=== PATIENT | female | born 1965 | race Two or more races ===

== ENCOUNTER 2021-02-14 12:19 | Inpatient (IN) | payer OTHER, MEDICAID ==
[2021-02-14] VITALS (16 sets, daily range): BP systolic 77–123; BP diastolic 45–84
[~2021-02-14] VITALS: Ht 160 cm; Wt 112.9 kg
[2021-02-14] MEDS ORDERED: SODIUM CHLORIDE 0.9% 1,000 ML IV ONE ×3 (13:30→17:00)
[2021-02-14] MEDS ORDERED: SODIUM CHLORIDE 0.9% 1,000 ML IVB ONE (13:30)
[2021-02-14] MEDS ORDERED: HALOPERIDOL 5 MG TAB PO ONE (14:00)
[2021-02-14 14:05] LABS: Basophils # (auto) 0.1 10 ^3/uL (0-0.2); Basophils % (auto) 0.4 % (0.0-2.0); Eosinophils # (auto) 0 10 ^3/uL (0-0.8); Eosinophils % (auto) 0.2 % (0.0-7.0); Hematocrit 40.3 % (36.0-46.0); Hemoglobin 13.4 g/dL (12.2-16.2); Lymphocytes # (auto) 2.2 10 ^3/uL (0.4-5.4); Lymphocytes % (auto) 11.4 % (10.0-50.0); Mean Corpuscular Hemoglobin 30.5 pg (28.0-32.0); Mean Corpuscular Hgb Conc. 33.3 g/dL (32.0-36.0); Mean Corpuscular Volume 91.7 fL (80.0-100.0); Monocytes # (auto) 2.2 10 ^3/uL (0-1.3); Monocytes % (auto) 11.1 % (0.0-12.0); Neutrophils # (auto) 14.9 10 ^3/uL (1.6-8.6); Neutrophils % (auto) 76.9 % (37.0-80.0); Nucleated Red Blood Cells % 0.2 %; Red Cell Distribution Width 12.6 % (11.8-14.3); White Blood Cell 19.4 10^3/uL (4.4-10.8)
[2021-02-14 14:22] LABS: Albumin 3.8 g/dL (3.4-5.0); Calcium 8.1 mg/dL (8.5-10.1); Magnesium 3.5 mg/dL (1.6-2.6); Potassium 4.5 mmol/L (3.5-5.1)
[2021-02-14 14:42] LABS: BUN/Creatinine Ratio 8.6; Bilirubin, Total 0.4 mg/dL (0.2-1.0); Total Protein 8.6 g/dL (6.4-8.2)
[2021-02-14] MEDS ORDERED: LORazepam 2MG/ML-1ML VIAL IV ONE (15:00)
[2021-02-14] MEDS ORDERED: diphenhdrAMINE HCL 50 MG/1 ML VL IM ONE (15:00)
[2021-02-14] MEDS ORDERED: LORazepam 2MG/ML-1ML VIAL IM ONE (15:00)
[2021-02-14] MEDS ORDERED: ACETAMINOPHEN 325 MG TAB PO ONE (15:45)
[2021-02-14 16:32] LABS: Lactic Acid w/Reflex 6.4 mmol/L (0.4-2.0)
[2021-02-14] MEDS ORDERED: HEPARIN SODIUM (PORCINE) 5000 UNITS/ML 1ML VIAL IV ONE (17:00)
[2021-02-14] MEDS ORDERED: ENOXAPARIN SOD 120 MG/0.8 ML SYRINGE SC ONE (17:00)
[2021-02-14] MEDS ORDERED: NITROGLYCERIN 0.4 MG SL TAB SL PRN (17:00)
[2021-02-14] MEDS ORDERED: ACETYLCYSTEINE ORAL for CIN 20%(200MG/ML) 4ML PO SCH (17:00)
[2021-02-14] MEDS ORDERED: ASPirin 81 mg TAB PO ONE (17:00)
[2021-02-14] MEDS ORDERED: MORPHINE SULF INJ 2 MG/ML SYRINGE 1ML IV PRN (17:00)
[2021-02-14] MEDS ORDERED: NOREPINEPHRINE 8 MG/250ML KIT 250 ML IV ONE (17:18)
[2021-02-14] MEDS: NOREPINEPHRINE 8 MG/250ML KIT 250 ML IV SCH (17:21)
[2021-02-14] MEDS ORDERED: ACETYLCYSTEINE ORAL for CIN 20%(200MG/ML) 4ML PO ONE (17:30)
[2021-02-14] MEDS ORDERED: HEPARIN IN NS 1000Units/500mL 1,500 ML ONE (17:46)
[2021-02-14] MEDS ORDERED: IOHEXOL 350 MG/ML 100ML IJ ONE (17:46)
[2021-02-14] MEDS ORDERED: LIDOCAINE 2%HCL (LOCAL ANESTH.) INJ 20ML MDV ONE (17:46)
[2021-02-14] MEDS ORDERED: diphenhdrAMINE HCL 50 MG/1 ML VL ONE (18:16)
[2021-02-14] MEDS ORDERED: IODIXANOL 320MG/ML 100ML BTL IV ONE (18:18)
[2021-02-14] MEDS: levoFLOXacin 250MG 50 ML IV SCH (21:00)
[2021-02-14] MEDS ORDERED: CHOL20009 PO (21:14)
[2021-02-14] MEDS ORDERED: HAL5T PO (21:14)
[2021-02-14] MEDS ORDERED: TRAZ100T3 PO (21:14)
[2021-02-14] MEDS ORDERED: LAMO200T34 PO (21:14)
[2021-02-14] MEDS ORDERED: AML5T GT (21:14)
[2021-02-14] MEDS ORDERED: HALOPERIDOL LACTATE 5 MG/ML INJ VIAL IM ONE (21:15)
[2021-02-14 23:02] LABS: INR 1.19 (0.9-1.15)
[2021-02-15] VITALS (93 sets, daily range): BP systolic 48–188; BP diastolic 21–89
[2021-02-15] MEDS: NOREPINEPHRINE 8 MG/250ML KIT 250 ML IV SCH (01:30)
[2021-02-15 09:47] LABS: Basophils # (auto) 0.1 10 ^3/uL (0-0.2); Basophils % (auto) 0.3 % (0.0-2.0); Eosinophils # (auto) 0.1 10 ^3/uL (0-0.8); Eosinophils % (auto) 0.3 % (0.0-7.0); Hematocrit 41.3 % (36.0-46.0); Hemoglobin 13.7 g/dL (12.2-16.2); Lymphocytes # (auto) 1.7 10 ^3/uL (0.4-5.4); Lymphocytes % (auto) 8.1 % (10.0-50.0); Mean Corpuscular Hemoglobin 30.8 pg (28.0-32.0); Mean Corpuscular Hgb Conc. 33.1 g/dL (32.0-36.0); Mean Corpuscular Volume 92.9 fL (80.0-100.0); Monocytes # (auto) 0.9 10 ^3/uL (0-1.3); Monocytes % (auto) 4.4 % (0.0-12.0); Neutrophils # (auto) 18.4 10 ^3/uL (1.6-8.6); Neutrophils % (auto) 86.9 % (37.0-80.0); Nucleated Red Blood Cells % 0.4 %; Red Blood Cells 4.45 10^6/uL (4.0-5.20); White Blood Cell 21.1 10^3/uL (4.4-10.8)
[2021-02-15] MEDS: levoFLOXacin 250MG 50 ML IV SCH (10:00)
[2021-02-15 10:02] LABS: INR 1.26 (0.9-1.15); Partial Thromboplastin Time 22.7 sec (23.0-31.2)
[2021-02-15 10:08] LABS: Albumin 3.3 g/dL (3.4-5.0)
[2021-02-15 10:28] LABS: BUN/Creatinine Ratio 9.7; Bilirubin, Total 0.7 mg/dL (0.2-1.0); Total Protein 7.3 g/dL (6.4-8.2)
[2021-02-15] MEDS ORDERED: SODIUM CHLORIDE 0.9% 1,000 ML IV SCH (10:30)
[2021-02-15] MEDS ORDERED: ROCURONIUM 10MG/ML 10ML VIAL IV ONE (11:00)
[2021-02-15] MEDS: PROPOFOL 100 ML IV SCH (11:00)
[2021-02-15] MEDS: VASOPRESSIN 50 UNITS in D5W 5% 247.5 ML IV SCH (11:00)
[2021-02-15] MEDS: fentaNYL Drip 2500mCg/250mlNS 250 ML IV SCH (11:00)
[2021-02-15] MEDS ORDERED: ETOMIDATE (2MG/ML) 20ML VIAL IV ONE (11:00)
[2021-02-15] MEDS ORDERED: SUCCINYLCHOLINE CHLORIDE 20 MG/ML 10ML VIAL IV ONE (11:01)
[2021-02-15] MEDS ORDERED: PHENYLEPHRINE IV 250 ML IV ONE (11:02)
[2021-02-15] MEDS ORDERED: MIDAZOLAM DRIP 50 mg/50mL 50 ML IV ONE (11:14)
[2021-02-15 11:24] LABS: Calcium 5.7 mg/dL (8.5-10.1); Potassium 6.9 mmol/L (3.5-5.1)
[2021-02-15] MEDS ORDERED: SODIUM BICARBONATE 8.4% INJ 50ML SYRINGE ONE (11:25)
[2021-02-15] MEDS ORDERED: SODIUM BICARBONATE 8.4 % INJ 50ML VIAL IV ONE (11:30)
[2021-02-15] MEDS ORDERED: DEXTROSE 50% SYRINGE 50 ML IV ONE (11:31)
[2021-02-15] MEDS ORDERED: ALBUTEROL SULF 2.5 MG/0.5ML(0.5%) NEB SOLN NEB ONE (12:00)
[2021-02-15] MEDS ORDERED: SODIUM ZIRCONIUM CYCL 10 GM PAK PO ONE (12:00)
[2021-02-15] MEDS: MIDAZOLAM DRIP 50 mg/50mL 50 ML IV SCH (12:00)
[2021-02-15] MEDS ORDERED: CALCIUM GLUC 1,000mg/50ml-NS 50 ML IV ONE ×3 (12:00→23:00)
[2021-02-15 12:10] LABS: Cholesterol 190 mg/dL (< 200); Triglycerides 189 mg/dL (< 150)
[2021-02-15 12:12] LABS: HDL Cholesterol 53 mg/dL (40-59); LDL Cholesterol 111 mg/dL (< 100)
[2021-02-15] MEDS: SODIUM BICARBONATE 50ML VIAL 150 ML in D5W 5% 1,000 ML IV SCH ×2 (13:23→23:30)
[2021-02-15] MEDS: PIPERACILLIN-TAZOB 2.25GM 50 ML IV SCH ×2 (14:24→21:56)
[2021-02-15 15:32] LABS: BUN/Creatinine Ratio 9.7; Calcium 6.6 mg/dL (8.5-10.1)
[2021-02-15 15:39] LABS: Potassium 6.1 mmol/L (3.5-5.1)
[2021-02-15] MEDS ORDERED: SODIUM BICARBONATE 8.4% INJ 50ML SYRINGE IV ONE (15:45)
[2021-02-15] MEDS ORDERED: ENOXAPARIN SOD 100 MG/1 ML SYRINGE SC SCH (17:00)
[2021-02-15 19:27] LABS: Urine Amorphous Crystal FEW /hpf (None Seen); Urine Bacteria FEW /hpf (None Seen); Urine Blood 3+ /uL (Negative); Urine Budding Yeast MODERATE /hpf (None Seen); Urine Mucus FEW (None Seen); Urine WBC 5 /hpf (0 - 5)
[2021-02-15] MEDS: SODIUM ZIRCONIUM CYCL 10 GM PAK PO SCH (20:00)
[2021-02-15 21:51] LABS: BUN/Creatinine Ratio 9.4; Potassium 5.5 mmol/L (3.5-5.1)
[2021-02-15 21:54] LABS: Lactic Acid w/Reflex 3.5 mmol/L (0.4-2.0)
[2021-02-15 21:55] LABS: Calcium 5.8 mg/dL (8.5-10.1)
[2021-02-15] MEDS ORDERED: InsuLIN REG 1unit/0.01ml Soln (100units/ml) IV ONE (23:00)
[2021-02-15] MEDS ORDERED: DEXTROSE (50%) 50ML SYRG IV ONE (23:00)
[2021-02-16] VITALS (91 sets, daily range): BP systolic 98–141; BP diastolic 53–74
[2021-02-16] MEDS: NOREPINEPHRINE 8 MG/250ML KIT 250 ML IV SCH ×2 (02:00→23:59)
[2021-02-16 05:32] LABS: Basophils # (auto) 0.1 10 ^3/uL (0-0.2); Basophils % (auto) 0.4 % (0.0-2.0); Eosinophils # (auto) 0 10 ^3/uL (0-0.8); Eosinophils % (auto) 0.1 % (0.0-7.0); Hematocrit 36.6 % (36.0-46.0); Hemoglobin 12.6 g/dL (12.2-16.2); Lymphocytes # (auto) 1.5 10 ^3/uL (0.4-5.4); Lymphocytes % (auto) 10.1 % (10.0-50.0); Mean Corpuscular Hemoglobin 31.4 pg (28.0-32.0); Mean Corpuscular Hgb Conc. 34.5 g/dL (32.0-36.0); Mean Corpuscular Volume 90.9 fL (80.0-100.0); Monocytes # (auto) 0.5 10 ^3/uL (0-1.3); Monocytes % (auto) 3.2 % (0.0-12.0); Neutrophils # (auto) 12.8 10 ^3/uL (1.6-8.6); Neutrophils % (auto) 86.2 % (37.0-80.0); Nucleated Red Blood Cells % 0.4 %; Red Blood Cells 4.03 10^6/uL (4.0-5.20); Red Cell Distribution Width 12.7 % (11.8-14.3); White Blood Cell 14.9 10^3/uL (4.4-10.8)
[2021-02-16 05:42] LABS: Albumin 2.6 g/dL (3.4-5.0); Potassium 4.4 mmol/L (3.5-5.1)
[2021-02-16 05:53] LABS: Bilirubin, Total 1.5 mg/dL (0.2-1.0)
[2021-02-16] MEDS: PIPERACILLIN-TAZOB 2.25GM 50 ML IV SCH ×3 (06:00→21:57)
[2021-02-16 06:17] LABS: BUN/Creatinine Ratio 8.6
[2021-02-16] MEDS: SODIUM ZIRCONIUM CYCL 10 GM PAK PO SCH ×2 (06:50→12:00)
[2021-02-16] MEDS: MIDAZOLAM DRIP 50 mg/50mL 50 ML IV SCH (07:08)
[2021-02-16] MEDS ORDERED: SODIUM CHL 0.9% 1000 ML BAG XX ONE (10:30)
[2021-02-16] MEDS: fentaNYL Drip 2500mCg/250mlNS 250 ML IV SCH ×2 (11:00→17:00)
[2021-02-16] MEDS: VASOPRESSIN 50 UNITS in D5W 5% 247.5 ML IV SCH (11:00)
[2021-02-16] MEDS: PROPOFOL 100 ML IV SCH (11:00)
[2021-02-16] MEDS: SODIUM BICARBONATE 50ML VIAL 150 ML in D5W 5% 1,000 ML IV SCH ×2 (14:22→17:00)
[2021-02-16] MEDS ORDERED: BUMETANIDE 2.5mg/10ml (0.25 mg/ml) INJ IV ONE (17:00)
[2021-02-16] MEDS: lamoTRIgine 100 MG TAB PO SCH (22:35)
[2021-02-17] VITALS (105 sets, daily range): BP systolic 90–133; BP diastolic 47–81
[2021-02-17] MEDS: MIDAZOLAM DRIP 50 mg/50mL 50 ML IV SCH (05:24)
[2021-02-17] MEDS: PIPERACILLIN-TAZOB 2.25GM 50 ML IV SCH ×3 (05:34→23:10)
[2021-02-17 06:03] LABS: Albumin 2.1 g/dL (3.4-5.0)
[2021-02-17 06:22] LABS: BUN/Creatinine Ratio 8.2; Total Protein 5.8 g/dL (6.4-8.2)
[2021-02-17] MEDS ORDERED: ALBUTEROL SULF 2.5 MG/0.5ML(0.5%) NEB SOLN NEB ONE (07:00)
[2021-02-17] MEDS ORDERED: SODIUM BICARBONATE 8.4% INJ 50ML SYRINGE IV ONE (07:00)
[2021-02-17] MEDS ORDERED: InsuLIN REG 1unit/0.01ml Soln (100units/ml) IV ONE (07:00)
[2021-02-17] MEDS ORDERED: DEXTROSE (50%) 50ML SYRG IV ONE (07:00)
[2021-02-17] MEDS ORDERED: CALCIUM GLUC 1,000mg/50ml-NS 50 ML IV ONE ×2 (07:00→08:30)
[2021-02-17] MEDS ORDERED: DEXTROSE 50% SYRINGE 50 ML IV ONE (07:15)
[2021-02-17] MEDS ORDERED: SODIUM ZIRCONIUM CYCL 10 GM PAK PO ONE (08:30)
[2021-02-17] MEDS ORDERED: BUMETANIDE 2.5mg/10ml (0.25 mg/ml) INJ IV ONE (08:30)
[2021-02-17] MEDS ORDERED: ENOXAPARIN SOD 30 MG/0.3 ML SYRINGE SC SCH ×2 (10:00)
[2021-02-17] MEDS: lamoTRIgine 100 MG TAB PO SCH ×2 (10:41→23:10)
[2021-02-17] MEDS: PROPOFOL 100 ML IV SCH (11:00)
[2021-02-17] MEDS: VASOPRESSIN 50 UNITS in D5W 5% 247.5 ML IV SCH (11:00)
[2021-02-17] MEDS ORDERED: HEPARIN SODIUM (PORCINE) 5000 UNITS/ML 1ML VIAL IV ONE (13:45)
[2021-02-17] MEDS: HEPARIN DRIP/D5W 100UNITS/ML 250 ML IV SCH (14:50)
[2021-02-17] MEDS: SODIUM ZIRCONIUM CYCL 10 GM PAK PO SCH ×2 (14:52→23:14)
[2021-02-17 15:29] LABS: INR 1.29 (0.9-1.15); Partial Thromboplastin Time 35.6 sec (23.0-31.2)
[2021-02-17] MEDS: SODIUM BICARBONATE 50ML VIAL 150 ML in D5W 5% 1,000 ML IV SCH (16:00)
[2021-02-17 16:15] LABS: Hematocrit 33.1 % (36.0-46.0); Mean Corpuscular Hemoglobin 30.3 pg (28.0-32.0); Mean Corpuscular Hgb Conc. 33.4 g/dL (32.0-36.0); Mean Corpuscular Volume 90.6 fL (80.0-100.0); Red Blood Cells 3.65 10^6/uL (4.0-5.20); Red Cell Distribution Width 12.8 % (11.8-14.3); White Blood Cell 14.4 10^3/uL (4.4-10.8)
[2021-02-17 16:29] LABS: Basophils % (manual) 0 (0.0-2.0); Blast Cells 0; Metamyelocytes % 0; Myelocytes % 0; Promyelocytes % 0; Reactive Lymphocytes 0
[2021-02-17 18:04] LABS: Band Neutrophils % (manual) 5; Eosinophils % (manual) 1 (0-7); Lymphocytes % (manual) 10 (10.0-50.0); Monocytes % (manual) 3 (0-12)
[2021-02-17] MEDS: BUMETANIDE 2.5mg/10ml (0.25 mg/ml) INJ IV SCH (18:30)
[2021-02-18] VITALS (103 sets, daily range): BP systolic 103–144; BP diastolic 59–78
[2021-02-18] MEDS: HEPARIN DRIP/D5W 100UNITS/ML 250 ML IV SCH ×3 (04:03→16:45)
[2021-02-18] MEDS: BUMETANIDE 2.5mg/10ml (0.25 mg/ml) INJ IV SCH ×2 (05:56→18:10)
[2021-02-18] MEDS: PIPERACILLIN-TAZOB 2.25GM 50 ML IV SCH ×3 (05:57→22:04)
[2021-02-18] MEDS: SODIUM ZIRCONIUM CYCL 10 GM PAK PO SCH ×3 (05:57→22:05)
[2021-02-18 06:32] LABS: Basophils # (auto) 0 10 ^3/uL (0-0.2); Basophils % (auto) 0.3 % (0.0-2.0); Eosinophils # (auto) 0 10 ^3/uL (0-0.8); Eosinophils % (auto) 0.2 % (0.0-7.0); Hematocrit 27.7 % (36.0-46.0); Hemoglobin 9.5 g/dL (12.2-16.2); Lymphocytes # (auto) 0.6 10 ^3/uL (0.4-5.4); Lymphocytes % (auto) 4.5 % (10.0-50.0); Mean Corpuscular Hemoglobin 30.8 pg (28.0-32.0); Mean Corpuscular Hgb Conc. 34.3 g/dL (32.0-36.0); Mean Corpuscular Volume 89.7 fL (80.0-100.0); Monocytes # (auto) 0.6 10 ^3/uL (0-1.3); Monocytes % (auto) 4.4 % (0.0-12.0); Neutrophils # (auto) 11.9 10 ^3/uL (1.6-8.6); Neutrophils % (auto) 90.6 % (37.0-80.0); Nucleated Red Blood Cells % 0.1 %; Red Blood Cells 3.09 10^6/uL (4.0-5.20); Red Cell Distribution Width 12.6 % (11.8-14.3); White Blood Cell 13.1 10^3/uL (4.4-10.8)
[2021-02-18 06:54] LABS: Chloride 84 mmol/L (98-107); Sodium 129 mmol/L (136-145)
[2021-02-18 07:16] LABS: Alanine Aminotransferase 1749 U/L (13-56); Alkaline Phosphatase 194 U/L (45-117); Anion Gap 13 (5-15); Aspartate Aminotransferase 3093 U/L (15-37); BUN/Creatinine Ratio 7.8; Bilirubin, Total 2.1 mg/dL (0.2-1.0); Blood Urea Nitrogen 72 mg/dL (7-18); Carbon Dioxide 32 mmol/L (21-32); GFR African American 6 mL/min; GFR Non-African American 5 mL/min; Glucose 114 mg/dL (74-106); Total Protein 5.9 g/dL (6.4-8.2)
[2021-02-18 07:20] LABS: Calcium < 5.0 mg/dL (8.5-10.1); Potassium 6.6 mmol/L (3.5-5.1)
[2021-02-18 07:26] LABS: INR 1.34 (0.9-1.15)
[2021-02-18 07:29] LABS: Partial Thromboplastin Time 121.9 sec (23.0-31.2)
[2021-02-18] MEDS ORDERED: ALBUTEROL SULF 2.5 MG/0.5ML(0.5%) NEB SOLN ONE (08:55)
[2021-02-18] MEDS ORDERED: SODIUM CHLORIDE 0.9 % NEB SOLN 3ML NEB ONE (08:55)
[2021-02-18] MEDS ORDERED: ALBUTEROL SULF 2.5 MG/0.5ML(0.5%) NEB SOLN NEB ONE (09:00)
[2021-02-18] MEDS ORDERED: CALCIUM GLUC 1,000mg/50ml-NS 50 ML IV ONE ×2 (09:00→10:00)
[2021-02-18] MEDS: lamoTRIgine 100 MG TAB PO SCH ×2 (09:53→22:05)
[2021-02-18] MEDS: VASOPRESSIN 50 UNITS in D5W 5% 247.5 ML IV SCH (11:00)
[2021-02-18] MEDS: MIDAZOLAM DRIP 50 mg/50mL 50 ML IV SCH (11:00)
[2021-02-18] MEDS: PROPOFOL 100 ML IV SCH (11:00)
[2021-02-18] MEDS: fentaNYL Drip 2500mCg/250mlNS 250 ML IV SCH (11:00)
[2021-02-18 15:41] LABS: INR 1.31 (0.9-1.15)
[2021-02-18 15:43] LABS: Partial Thromboplastin Time > 139.0 sec (23.0-31.2)
[2021-02-18] MEDS: NOREPINEPHRINE 8 MG/250ML KIT 250 ML IV SCH (17:30)
[2021-02-18 23:22] LABS: INR 1.26 (0.9-1.15)
[2021-02-19] VITALS (104 sets, daily range): BP systolic 112–151; BP diastolic 61–87
[2021-02-19 04:35] LABS: Basophils # (auto) 0 10 ^3/uL (0-0.2); Basophils % (auto) 0.3 % (0.0-2.0); Eosinophils # (auto) 0.1 10 ^3/uL (0-0.8); Eosinophils % (auto) 0.5 % (0.0-7.0); Hematocrit 26.6 % (36.0-46.0); Hemoglobin 9.4 g/dL (12.2-16.2); Lymphocytes # (auto) 0.7 10 ^3/uL (0.4-5.4); Lymphocytes % (auto) 6.4 % (10.0-50.0); Mean Corpuscular Hemoglobin 31.2 pg (28.0-32.0); Mean Corpuscular Hgb Conc. 35.4 g/dL (32.0-36.0); Mean Corpuscular Volume 88.1 fL (80.0-100.0); Monocytes # (auto) 0.7 10 ^3/uL (0-1.3); Monocytes % (auto) 6.4 % (0.0-12.0); Neutrophils # (auto) 9.3 10 ^3/uL (1.6-8.6); Neutrophils % (auto) 86.4 % (37.0-80.0); Nucleated Red Blood Cells % 0.1 %; Red Blood Cells 3.02 10^6/uL (4.0-5.20); Red Cell Distribution Width 12.6 % (11.8-14.3); White Blood Cell 10.8 10^3/uL (4.4-10.8)
[2021-02-19 05:10] LABS: INR 1.22 (0.9-1.15); Partial Thromboplastin Time 57.5 sec (23.0-31.2)
[2021-02-19 05:19] LABS: Albumin 1.9 g/dL (3.4-5.0); BUN/Creatinine Ratio 7.5; Bilirubin, Total 1.9 mg/dL (0.2-1.0); Magnesium 2.4 mg/dL (1.6-2.6); Total Protein 6.2 g/dL (6.4-8.2)
[2021-02-19 05:46] LABS: Calcium 5.3 mg/dL (8.5-10.1)
[2021-02-19] MEDS: BUMETANIDE 2.5mg/10ml (0.25 mg/ml) INJ IV SCH ×2 (06:05→18:23)
[2021-02-19] MEDS: SODIUM ZIRCONIUM CYCL 10 GM PAK PO SCH ×2 (06:05→23:31)
[2021-02-19] MEDS: PIPERACILLIN-TAZOB 2.25GM 50 ML IV SCH ×3 (06:05→23:31)
[2021-02-19] MEDS: lamoTRIgine 100 MG TAB PO SCH ×2 (10:26→23:31)
[2021-02-19] MEDS: VASOPRESSIN 50 UNITS in D5W 5% 247.5 ML IV SCH (11:00)
[2021-02-19] MEDS: fentaNYL Drip 2500mCg/250mlNS 250 ML IV SCH (11:00)
[2021-02-19] MEDS: MIDAZOLAM DRIP 50 mg/50mL 50 ML IV SCH (11:00)
[2021-02-19] MEDS: PROPOFOL 100 ML IV SCH (11:00)
[2021-02-19 11:12] LABS: INR 1.14 (0.9-1.15); Partial Thromboplastin Time 43.3 sec (23.0-31.2)
[2021-02-19] MEDS ORDERED: PANTOPRAZOLE 40 MG/10 ML VIAL INJ IV ONE (15:15)
[2021-02-19] MEDS: NOREPINEPHRINE 8 MG/250ML KIT 250 ML IV SCH (17:30)
[2021-02-19 17:54] LABS: Hepatitis A Ab IgM Negative
[2021-02-19 17:55] LABS: Hepatitis B Core IgM Negative; Hepatitis B Surface Antigen Negative (Negative); Hepatitis C Antibody Negative (Negative)
[2021-02-19] MEDS: HEPARIN DRIP/D5W 100UNITS/ML 250 ML IV SCH (18:27)
[2021-02-19 19:15] LABS: INR 1.15 (0.9-1.15); Partial Thromboplastin Time 47.8 sec (23.0-31.2)
[2021-02-20] VITALS (101 sets, daily range): BP systolic 107–160; BP diastolic 51–78
[2021-02-20 04:43] LABS: Basophils # (auto) 0 10 ^3/uL (0-0.2); Basophils % (auto) 0.1 % (0.0-2.0); Eosinophils # (auto) 0.1 10 ^3/uL (0-0.8); Eosinophils % (auto) 0.8 % (0.0-7.0); Hematocrit 25.7 % (36.0-46.0); Hemoglobin 9.1 g/dL (12.2-16.2); Lymphocytes # (auto) 0.6 10 ^3/uL (0.4-5.4); Lymphocytes % (auto) 6.4 % (10.0-50.0); Mean Corpuscular Hemoglobin 31.4 pg (28.0-32.0); Mean Corpuscular Hgb Conc. 35.3 g/dL (32.0-36.0); Monocytes # (auto) 0.4 10 ^3/uL (0-1.3); Neutrophils # (auto) 8.1 10 ^3/uL (1.6-8.6); Neutrophils % (auto) 88.7 % (37.0-80.0); Nucleated Red Blood Cells % 0.1 %; Red Blood Cells 2.88 10^6/uL (4.0-5.20); Red Cell Distribution Width 12.2 % (11.8-14.3); White Blood Cell 9.1 10^3/uL (4.4-10.8)
[2021-02-20 04:58] LABS: INR 1.16 (0.9-1.15)
[2021-02-20 05:01] LABS: Albumin 1.8 g/dL (3.4-5.0)
[2021-02-20 05:18] LABS: Bilirubin, Total 1.3 mg/dL (0.2-1.0); Total Protein 6.2 g/dL (6.4-8.2)
[2021-02-20] MEDS: BUMETANIDE 2.5mg/10ml (0.25 mg/ml) INJ IV SCH ×2 (06:14→18:02)
[2021-02-20] MEDS: PIPERACILLIN-TAZOB 2.25GM 50 ML IV SCH ×3 (06:14→23:47)
[2021-02-20] MEDS: SODIUM ZIRCONIUM CYCL 10 GM PAK PO SCH ×3 (06:14→23:48)
[2021-02-20 09:50] LABS: Anion Gap 16 (5-15); Carbon Dioxide 28 mmol/L (21-32); Chloride 84 mmol/L (98-107); Glucose 62 mg/dL (74-106); Sodium 128 mmol/L (136-145)
[2021-02-20 09:51] LABS: BUN/Creatinine Ratio 7.9; GFR African American 4 mL/min; GFR Non-African American 3 mL/min
[2021-02-20 09:55] LABS: Blood Urea Nitrogen 94 mg/dL (7-18); Calcium < 5.0 mg/dL (8.5-10.1)
[2021-02-20 09:56] LABS: Potassium 5.8 mmol/L (3.5-5.1)
[2021-02-20] MEDS: PANTOPRAZOLE 40 MG/10 ML VIAL INJ IV SCH (10:10)
[2021-02-20] MEDS: lamoTRIgine 100 MG TAB PO SCH ×2 (10:10→23:47)
[2021-02-20] MEDS: fentaNYL Drip 2500mCg/250mlNS 250 ML IV SCH (10:27)
[2021-02-20] MEDS: VASOPRESSIN 50 UNITS in D5W 5% 247.5 ML IV SCH (10:28)
[2021-02-20] MEDS: MIDAZOLAM DRIP 50 mg/50mL 50 ML IV SCH (10:28)
[2021-02-20] MEDS: PROPOFOL 100 ML IV SCH (10:28)
[2021-02-20] MEDS: NOREPINEPHRINE 8 MG/250ML KIT 250 ML IV SCH (17:23)
[2021-02-21] VITALS (101 sets, daily range): BP systolic 79–148; BP diastolic 35–103
[2021-02-21] MEDS: SODIUM ZIRCONIUM CYCL 10 GM PAK PO SCH ×2 (06:21→14:00)
[2021-02-21] MEDS: LORazepam 2MG/ML-1ML VIAL IV PRN ×3 (06:21→21:45)
[2021-02-21] MEDS: PIPERACILLIN-TAZOB 2.25GM 50 ML IV SCH ×3 (06:21→21:44)
[2021-02-21] MEDS: BUMETANIDE 2.5mg/10ml (0.25 mg/ml) INJ IV SCH ×2 (06:21→18:48)
[2021-02-21] MEDS ORDERED: CALCIUM CHL 100MG/ML 1,000 MG in D5W 5% 100 ML IV ONE (09:30)
[2021-02-21] MEDS: MIDAZOLAM DRIP 50 mg/50mL 50 ML IV SCH ×4 (09:48→23:21)
[2021-02-21] MEDS: lamoTRIgine 100 MG TAB PO SCH ×2 (10:02→21:45)
[2021-02-21] MEDS: PANTOPRAZOLE 40 MG/10 ML VIAL INJ IV SCH (10:02)
[2021-02-21] MEDS: PROPOFOL 100 ML IV SCH (11:00)
[2021-02-21] MEDS: VASOPRESSIN 50 UNITS in D5W 5% 247.5 ML IV SCH (11:00)
[2021-02-21] MEDS: fentaNYL Drip 2500mCg/250mlNS 250 ML IV SCH (11:00)
[2021-02-21] MEDS: NOREPINEPHRINE 8 MG/250ML KIT 250 ML IV SCH (17:30)
[2021-02-21] MEDS: BACITRACIN TOP OINT 1 UD PKG TOP SCH (22:09)
[2021-02-21] MEDS: SODIUM CHLORIDE 0.9% 1,000 ML IV SCH (22:10)
[2021-02-22] VITALS (67 sets, daily range): BP systolic 94–128; BP diastolic 44–59
[2021-02-22] MEDS: MIDAZOLAM DRIP 50 mg/50mL 50 ML IV SCH ×2 (02:24→16:00)
[2021-02-22] MEDS: NOREPINEPHRINE 8 MG/250ML KIT 250 ML IV SCH (02:24)
[2021-02-22 05:06] LABS: Basophils # (auto) 0 10 ^3/uL (0-0.2); Basophils % (auto) 0.1 % (0.0-2.0); Eosinophils # (auto) 0.1 10 ^3/uL (0-0.8); Eosinophils % (auto) 0.8 % (0.0-7.0); Hematocrit 23.8 % (36.0-46.0); Hemoglobin 8.5 g/dL (12.2-16.2); Lymphocytes # (auto) 0.7 10 ^3/uL (0.4-5.4); Lymphocytes % (auto) 4.6 % (10.0-50.0); Mean Corpuscular Hemoglobin 31.6 pg (28.0-32.0); Mean Corpuscular Hgb Conc. 35.9 g/dL (32.0-36.0); Monocytes # (auto) 0.3 10 ^3/uL (0-1.3); Neutrophils # (auto) 13.7 10 ^3/uL (1.6-8.6); Neutrophils % (auto) 92.5 % (37.0-80.0); Nucleated Red Blood Cells % 0.1 %; Red Cell Distribution Width 12.4 % (11.8-14.3); White Blood Cell 14.8 10^3/uL (4.4-10.8)
[2021-02-22 05:24] LABS: Albumin 1.7 g/dL (3.4-5.0); Anion Gap 21 (5-15); Carbon Dioxide 25 mmol/L (21-32); Chloride 82 mmol/L (98-107); Glucose 84 mg/dL (74-106); Potassium 3.9 mmol/L (3.5-5.1); Sodium 128 mmol/L (136-145)
[2021-02-22 05:32] LABS: Alanine Aminotransferase 805 U/L (13-56); Alkaline Phosphatase 279 U/L (45-117); Aspartate Aminotransferase 1067 U/L (15-37); BUN/Creatinine Ratio 8.1; Bilirubin, Total 0.9 mg/dL (0.2-1.0); GFR African American 4 mL/min; GFR Non-African American 3 mL/min; Total Protein 6.1 g/dL (6.4-8.2)
[2021-02-22] MEDS: LORazepam 2MG/ML-1ML VIAL IV PRN ×3 (05:53→20:30)
[2021-02-22] MEDS: BUMETANIDE 2.5mg/10ml (0.25 mg/ml) INJ IV SCH (05:53)
[2021-02-22] MEDS: PIPERACILLIN-TAZOB 2.25GM 50 ML IV SCH ×2 (05:53→13:25)
[2021-02-22] MEDS: SODIUM CHLORIDE 0.9% 1,000 ML IV SCH (05:54)
[2021-02-22 06:39] LABS: Blood Urea Nitrogen 108 mg/dL (7-18); Calcium < 5.0 mg/dL (8.5-10.1)
[2021-02-22] MEDS ORDERED: CALCIUM GLUC 1,000mg/50ml-NS 50 ML IV ONE (06:45)
[2021-02-22] MEDS: PROPOFOL 100 ML IV SCH (11:00)
[2021-02-22] MEDS: fentaNYL Drip 2500mCg/250mlNS 250 ML IV SCH (11:00)
[2021-02-22] MEDS: VASOPRESSIN 50 UNITS in D5W 5% 247.5 ML IV SCH (11:00)
[2021-02-22] MEDS: lamoTRIgine 100 MG TAB PO SCH (11:22)
[2021-02-22] MEDS: PANTOPRAZOLE 40 MG/10 ML VIAL INJ IV SCH (11:22)
[2021-02-22] MEDS: BACITRACIN TOP OINT 1 UD PKG TOP SCH (11:23)
[2021-02-22] MEDS: MORPHINE SULF INJ 2 MG/ML SYRINGE 1ML IV PRN ×2 (17:56→21:33)
[2021-02-23] MEDS: LORazepam 2MG/ML-1ML VIAL IV PRN ×5 (01:10→12:30)
[2021-02-23] MEDS: MORPHINE SULF INJ 2 MG/ML SYRINGE 1ML IV PRN ×2 (04:01→11:30)
[2021-02-23 05:17] LABS: Basophils # (auto) 0.1 10 ^3/uL (0-0.2); Basophils % (auto) 0.3 % (0.0-2.0); Eosinophils # (auto) 0.1 10 ^3/uL (0-0.8); Eosinophils % (auto) 0.5 % (0.0-7.0); Hemoglobin 8.8 g/dL (12.2-16.2); Lymphocytes # (auto) 0.6 10 ^3/uL (0.4-5.4); Lymphocytes % (auto) 3.2 % (10.0-50.0); Mean Corpuscular Hemoglobin 31.1 pg (28.0-32.0); Mean Corpuscular Hgb Conc. 35.1 g/dL (32.0-36.0); Mean Corpuscular Volume 88.7 fL (80.0-100.0); Monocytes # (auto) 0.4 10 ^3/uL (0-1.3); Monocytes % (auto) 2.1 % (0.0-12.0); Neutrophils # (auto) 18.1 10 ^3/uL (1.6-8.6); Neutrophils % (auto) 93.9 % (37.0-80.0); Nucleated Red Blood Cells % 0.1 %; Red Blood Cells 2.82 10^6/uL (4.0-5.20); Red Cell Distribution Width 12.4 % (11.8-14.3); White Blood Cell 19.2 10^3/uL (4.4-10.8)
[2021-02-23 05:22] VITALS: BP 105/54
[2021-02-23 05:58] LABS: Chloride 81 mmol/L (98-107); Potassium 4.1 mmol/L (3.5-5.1); Sodium 128 mmol/L (136-145)
[2021-02-23 06:04] LABS: Alanine Aminotransferase 685 U/L (13-56); Albumin 1.8 g/dL (3.4-5.0); Anion Gap 23 (5-15); Aspartate Aminotransferase 727 U/L (15-37); BUN/Creatinine Ratio 8.1; Carbon Dioxide 24 mmol/L (21-32); GFR African American 4 mL/min; GFR Non-African American 3 mL/min; Glucose 85 mg/dL (74-106)
[2021-02-23 06:06] LABS: Alkaline Phosphatase 389 U/L (45-117); Bilirubin, Total 0.8 mg/dL (0.2-1.0); Total Protein 6.6 g/dL (6.4-8.2)
[2021-02-23 06:22] LABS: Blood Urea Nitrogen 113 mg/dL (7-18); Calcium < 5.0 mg/dL (8.5-10.1)
[2021-02-23 08:53] VITALS: BP 120/58
[2021-02-23 12:46] VITALS: BP 95/66
== END 2021-02-23 15:10 | DRG 870 ==
LOC: ER 12:19 → EDBD 12:19 → TELE 17:00 → DOU IN ICU 20:10 → TELE-CENTR 02-22 20:01
PROVIDERS: ADMIT Nurse Practitioner Acute Care; ATTEND Family Medicine
PROC: 4A023N7 Measurement of Cardiac Sampling and Pressure, Left Heart, Percutaneous Approach (ICD-10-PCS; 2021-02-14)
PROC: B2111ZZ Fluoroscopy of Multiple Coronary Arteries using Low Osmolar Contrast (ICD-10-PCS; 2021-02-14)
PROC: B2151ZZ Fluoroscopy of Left Heart using Low Osmolar Contrast (ICD-10-PCS; 2021-02-14)
PROC: 05HC33Z Insertion of Infusion Device into Left Basilic Vein, Percutaneous Approach (ICD-10-PCS; 2021-02-14)
PROC: B54NZZA Ultrasonography of Left Upper Extremity Veins, Guidance (ICD-10-PCS; 2021-02-14)
PROC: 5A1955Z Respiratory Ventilation, Greater than 96 Consecutive Hours (ICD-10-PCS; principal; 2021-02-15)
PROC: 06HM33Z Insertion of Infusion Device into Right Femoral Vein, Percutaneous Approach (ICD-10-PCS; 2021-02-15)
PROC: 5A12012 Performance of Cardiac Output, Single, Manual (ICD-10-PCS; 2021-02-15)
PROC: 0BH17EZ Insertion of Endotracheal Airway into Trachea, Via Natural or Artificial Opening (ICD-10-PCS; 2021-02-15)
DX: A41.9 Sepsis, unspecified organism (principal); K72.00 Acute and subacute hepatic failure without coma; G93.41 Metabolic encephalopathy; J96.01 Acute respiratory failure with hypoxia; N18.6 End stage renal disease; R65.21 Severe sepsis with septic shock; G93.6 Cerebral edema; J18.9 Pneumonia, unspecified organism; I21.3 ST elevation (STEMI) myocardial infarction of unspecified site; I13.2 Hypertensive heart and chronic kidney disease with heart failure and with stage 5 chronic kidney disease, or end stage renal disease; N17.9 Acute kidney failure, unspecified; I50.22 Chronic systolic (congestive) heart failure; F84.0 Autistic disorder; G93.1 Anoxic brain damage, not elsewhere classified; I82.411 Acute embolism and thrombosis of right femoral vein; Z20.822 Contact with and (suspected) exposure to COVID-19; G40.909 Epilepsy, unspecified, not intractable, without status epilepticus; G47.00 Insomnia, unspecified; F41.9 Anxiety disorder, unspecified; M54.5 Low back pain; R80.9 Proteinuria, unspecified; I46.9 Cardiac arrest, cause unspecified; Z51.5 Encounter for palliative care; E66.9 Obesity, unspecified; E87.5 Hyperkalemia; F25.9 Schizoaffective disorder, unspecified; F79 Unspecified intellectual disabilities; I25.10 Atherosclerotic heart disease of native coronary artery without angina pectoris; Z68.38 Body mass index [BMI] 38.0-38.9, adult; Z79.899 Other long term (current) drug therapy
CPT/HCPCS: 36415; 36600; 70450; 71045; 76705; 76775; 80048; 80053; 80061; 80074; 80076; 81001; 82140; 82570; 82805; 82962; 83605; 83735; 83880; 84132; 84156; 84300; 84484; 85007; 85025; 85027; 85379; 85610; 85730; 87040; 87081; 87086; 87426; 87493; 92950; 93005; 93306; 93970; 94002; 94003; 94640; 95819; 96360; 96372; 99152; C1887; C9113; G0378; J0330; J1815; J2250; J2543; J7060; Q9967